=== PATIENT | female | born 1990 | race Caucasian/White ===

== ENCOUNTER 2016-09-09 11:53 | Emergency (ER) | payer OTHER ==
[~2016-09-09] VITALS: Wt 71.0 kg
[~2016-09-09 11:53] MED LIST: FAMO-18 PO; PREN1TAB49 PO
[2016-09-09] MEDS ORDERED: KETOROLAC 30 MG INJ IM STA (12:24)
--- NOTE | 2016-09-09 12:36 | ERD ---
ER Documentation Chief Complaint Date/Time DATE: 09/09/16 TIME: 12:27 Chief Complaint BACK PAIN X "A FEW WEEKS" HPI This is a 18-year-old female presenting to the emergency department for back pain 2-1/2 months. Patient states she is having aching type back pain for the past 2-1/2 months. Patient states she is also having pain that radiates down bilateral legs. No numbness or tingling. No loss of sensation. No midline tenderness. No abdominal pain. No dysuria or hematuria. No urinary or fecal incontinence. Has not tried any medications for this. ROS All systems reviewed and are negative except as per history of present illness. Medications Home Meds Active Scripts Cyclobenzaprine Hcl* (Cyclobenzaprine Hcl*) 10 Mg Tablet, 10 MG PO TID, #15 TAB Prov:JADE CHIN NP 09/09/16 Ibuprofen* (Motrin*) 600 Mg Tab, 600 MG PO Q6, #15 TAB Prov:JADE CHIN NP 09/09/16 Famotidine* (Pepcid*) 20 Mg Tablet, 20 MG PO BID for 4 Days, TAB Prov:REVA BLANCA MD 03/29/16 Reported Medications Vits W-Ca,Fe,Fa(<1MG) () 1 Tab Tablet, 1 TAB PO DAILY 07/31/12 Allergies Allergies: Coded Allergies: No Known Allergy (Unverified , 12/03/13) PMhx/Soc Medical and Surgical Hx: pt denies Medical Hx Hx Miscellaneous Medical Probl: Yes (POSSIBLY DIABETIC) Hx Alcohol Use: No Hx Substance Use: No Hx Tobacco Use: No Physical Exam Vitals Vital Signs Date Time Temp Pulse Resp B/P Pulse Ox O2 Delivery O2 Flow Rate FiO2 09/09/16 11:58 98.0 99 18 122/61 99 Physical Exam Const: No acute distress, alert, oriented to person place and time. Head: Atraumatic Eyes: Normal Conjunctiva ENT: Normal External Ears, Nose and Mouth. Neck: Full range of motion..~ No meningismus. Resp: Clear to auscultation bilaterally Cardio: Regular rate and rhythm, no murmurs Abd: Soft, non tender, non distended. Normal bowel sounds Skin: No petechiae or rashes Back: No midline or flank tenderness. Ext: No cyanosis, or edema Neur: Awake and alert Psych: Normal Mood and Affect Results 24 hrs Current Medications Medications (Trade) Dose Ordered Sig/Jaylyn Route PRN Reason Start Time Stop Time Status Last Admin Dose Admin Ketorolac Tromethamine (Toradol) 30 mg ONCE STAT IM 09/09/16 12:24 09/09/16 12:25 DC 09/09/16 12:48 Procedures/MDM ED COURSE: The patient was stable throughout ED course. I kept the patient and/or family informed of laboratory and diagnostic imaging results throughout the ED course. Toradol given MDM: 26-year-old female presents to the emergency department for intermittent back pain and bilateral leg pain 2-1/2 months. Remains neurovascularly intact. No neuro deficits. No urinary or fecal incontinence. No saddle anesthesia. No abdominal pain. No nausea, vomiting or diarrhea. Urine is negative for infection. Urine negative. No fevers. Patient given Toradol IM while in the ED. No indication for imaging at this time. Patient requesting to leave at this time and states pain is stable Low suspicion for cauda equina syndrome, epidural abscess, osteomyelitis, aortic aneurysm or paraspinous abscess. Differential diagnosis includes but not limited to spondylodesis, herniated disc, osteoarthritis, spinal stenosis, osteoporosis and rheumatoid arthritis. Patient is appropriate for outpatient management will be given prescription for ibuprofen. Instructed patient to follow-up with primary care provider in the next 24-48 hours for reassessment and additional management. Return to ED for any high fever, chest pain, difficulty breathing, shortness breath, wheezing, vomiting, diarrhea, abdominal pain or any new or worsening symptoms. Patient verbalizes understanding. All questions answered at discharge. Departure Diagnosis: Primary Impression: Back pain Back pain location: back pain in unspecified location Chronicity: chronic Back pain laterality: bilateral Qualified Code: M54.9 - Chronic bilateral back pain, unspecified back location Condition: Stable JADE CHIN NP Sep 09, 2016 12:36
[2016-09-09] MEDS ORDERED: IBUP-1542 PO (14:03)
[2016-09-09] MEDS ORDERED: CYCL-319 PO (14:03)
[2016-09-09 14:14] VITALS: RESP 18
== END 2016-09-09 14:14 | disposition home or self-care (01) ==
LOC: FTE 11:53
DX: M54.9 Dorsalgia, unspecified (principal)
CPT/HCPCS: 96372; J1885; Z7502

== ENCOUNTER 2016-11-06 11:15 | Emergency (ER) | payer OTHER ==
[~2016-11-06] VITALS: Ht 160 cm; Wt 74.5 kg
[~2016-11-06 11:15] MED LIST changes: +CYCL-319 PO; +IBUP-1542 PO
[2016-11-06 11:19] VITALS: Ht 160 cm; Wt 74.5 kg
--- NOTE | 2016-11-06 11:40 | ERD ---
ER Documentation Chief Complaint Date/Time DATE: 11/06/16 TIME: 11:37 Chief Complaint Complains of abdominal pain with cramping HPI 26-year-old female who presents to the emergency department for lower abdominal pain and cramping that radiates to her bilateral lower extremity. Stated that has been going on for a few months but got worse the past 2 days. Denies headache, loss of consciousness, dizziness, blurry vision, changes in vision, photophobia, facial pain, ear pain, throat pain, difficulty swallowing, neck pain, shoulder pain, chest pain, cough, hemoptysis, back pain, loss of appetite, nausea, vomiting, hematochezia, diarrhea, constipation, urinary symptoms, , the possibility of being , bladder and bowel incontinences, extremity weakness, extremity tenderness, numbness or tingling sensation, difficulty walking, recent travel, recent exposure to illness, recent antibiotic use in the last 3 months, fever, chills. Allergy: NKDA. PMH: Denies. Family medical history: Denies. AO LMP: October 14, 2016. Medications: Meloxicam 50 mg by mouth daily. Surgery: Denies. Primary Social History: Not working at this time. Denies smoking, use of alcohol, use of illegal drugs. ROS All systems reviewed and are negative except as per history of present illness. Medications Home Meds Active Scripts Cyclobenzaprine Hcl* (Cyclobenzaprine Hcl*) 10 Mg Tablet, 10 MG PO TID, #15 TAB Prov:JADE CHIN NP 09/09/16 Ibuprofen* (Motrin*) 600 Mg Tab, 600 MG PO Q6, #15 TAB Prov:JADE CHIN NP 09/09/16 Famotidine* (Pepcid*) 20 Mg Tablet, 20 MG PO BID for 4 Days, TAB Prov:REVA BLANCA MD 03/29/16 Reported Medications Vits W-Ca,Fe,Fa(<1MG) () 1 Tab Tablet, 1 TAB PO DAILY 07/31/12 Allergies Allergies: Coded Allergies: No Known Allergy (Unverified , 12/03/13) PMhx/Soc Hx Miscellaneous Medical Probl: Yes (POSSIBLY DIABETIC) Hx Alcohol Use: No Hx Substance Use: No Hx Tobacco Use: No Physical Exam Vitals Vital Signs Date Time Temp Pulse Resp B/P Pulse Ox O2 Delivery O2 Flow Rate FiO2 11/06/16 11:19 98.0 82 20 119/64 99 Physical Exam CONSTITUTIONAL: Well-appearing; well-nourished; in no apparent distress. HEAD: Normocephalic; atraumatic. EYES: Conjunctiva clear, sclera non-icteric, EOM intact. PERRL Ears: Hearing intact. EACs clear, TMs non-bulging, non-inflamed, translucent & mobile, ossicles normal appearance, No obstructions, no erythema, no discharges Nose: No obstructions. No polyps. No external lesions. Mucosa non-inflamed. No external lesions, septum and turbinates normal. No rhinorrhea. No discharges. Frontal sinus is non-tender to palpation. Maxillary sinus is non-tender to palpation. MOUTH: Moist mucous membranes, no lesion, no obstructions, no vesicles, no thrush, patent airway Throat: Uvula in midline. Right tonsil is +1 with no erythema, no exudate. Left tonsil is +1 with no erythema, no exudate. Tolerating secretions well. Good gag reflex. Patent airway. Neck: Supple, without lesions, bruits, or adenopathy. No mass. Thyroid non- enlarged and non-tender to palpation. CHEST: Symmetrical chest. Respirations even and not labored. No retractions noted. CARDIOVASCULAR: Normal S1, S2. RRR. No murmurs, gallops. RESPIRATORY: Normal chest excursion with respiration; breath sounds clear and equal bilaterally; no wheezes, rhonchi, or rales. Breathing even and unlabored. Speaking in clear, full, and complete sentences w/ ease. ABDOMEN: Normal bowel sounds normal. Soft, round, non-distended, non-guarding, no tenderness, no rebound, no organomegaly, no masses, no pulsating abdominal mass. No hernia. No peritoneal signs. : No CVA tenderness. BACK: Symmetrical shoulder. Spine is midline without deformity, tenderness. No evidence of trauma or deformity. PELVIS: Stable pelvis. No evidence of trauma or deformity. MUSCULOSKELETAL: Normal gait and station. No misalignment, asymmetry, crepitation, defects, tenderness, masses, effusions, decreased range of motion, instability, atrophy or abnormal strength or tone in the head, neck, spine, ribs , pelvis or extremities. No calf tenderness. NEUROVASCULAR: Distal pulses are present. Pedal pulse are present, equal, and normal. Capillary refills are < 2 seconds. NEUROLOGIC: Alert and oriented x4. Speaks full and clear sentences. Cranial Nerves II-XII normal. Sensation to pain, touch, and proprioception normal. Grossly unremarkable. No neurologic deficits. Romberg test is negative. PSYCHOLOGICAL: The patients mood and manner are appropriate. No hallucinations , delusions. Not SI. Not HI. Has the capacity to decide for self SKIN: Normal for age and ethnicity; warm; dry; good turgor; no apparent lesions or exudates. No rashes, hives, discoloration. Intact. Result Diagram: 11/06/16 1150 11/06/16 1150 Results 24 hrs Laboratory Tests Test 11/06/16 11:50 11/06/16 11:51 White Blood Count 6.710^3/ul Red Blood Count 4.5710^6/ul Hemoglobin 12.5g/dl Hematocrit 37.8% Mean Corpuscular Volume 82.7fl Mean Corpuscular Hemoglobin 27.4pg Mean Corpuscular Hemoglobin Concent 33.1g/dl Red Cell Distribution Width 14.6% Platelet Count 97408^3/UL Mean Platelet Volume 10.3fl Neutrophils % 51.2% Lymphocytes % 40.3% Monocytes % 7.0% Eosinophils % 1.3% Basophils % 0.1% Nucleated Red Blood Cells % 0.0/100WBC Neutrophils # 3.410^3/ul Lymphocytes # 2.710^3/ul Monocytes # 0.510^3/ul Eosinophils # 0.110^3/ul Basophils # 0.010^3/ul Nucleated Red Blood Cells # 0.010^3/ul Sodium Level 143mmol/L Potassium Level 3.8mmol/L Chloride Level 104mmol/L Carbon Dioxide Level 25mmol/L Anion Gap 18 Blood Urea Nitrogen 12mg/dl Creatinine 0.60mg/dl Glucose Level 88mg/dl Calcium Level 9.5mg/dl Total Bilirubin 0.1mg/dl Direct Bilirubin 0.00mg/dl Indirect Bilirubin 0.1mg/dl Aspartate Amino Transf (AST/SGOT) 16IU/L Alanine Aminotransferase (ALT/SGPT) 25IU/L Alkaline Phosphatase 62IU/L Total Protein 8.4g/dl Albumin 4.7g/dl Globulin 3.70g/dl Albumin/Globulin Ratio 1.27 Amylase Level 76U/L Lipase 84U/L Urine Color LT. YELLOW Urine Clarity CLEAR Urine pH 6.0 Urine Specific [place] 1.020 Urine Ketones NEGATIVE Urine Nitrite NEGATIVE Urine Bilirubin NEGATIVE Urine Urobilinogen 0.2 E.U./dL Urine Leukocyte Esterase TRACE Urine Microscopic RBC 2-5/HPF Urine Microscopic WBC 0-2/HPF Urine Squamous Epithelial Cells MODERATE Urine Bacteria FEW Urine Hemoglobin NEGATIVE Urine Glucose NEGATIVE% Urine Total Protein NEGATIVE Procedures/MDM Examination: Please see physical examination. Disease process, medical treatment was explained to the patient and family member. They verbalized understanding and agreed with the diagnostic tests, medical treatment, and follow-up care. Radiology: Pelvic ultrasound. Impression: Unremarkable ultrasound of the pelvis. Blood works: Reviewed. POC urine : Urinalysis: Reviewed. Treatment: Tylenol. Re-evaluation: Denies headache, dizziness, blurry vision, neck pain, shoulder pain, chest pain, abdominal pain, back pain, nausea, vomiting. No episode of emesis in the emergency department. There is no right upper/right lower/left upper/left lower/epigastric tenderness on light and deep palpation. Negative on Rovsing sign's. Negative Mak sign. No CVA tenderness. No neurological deficits. No neurovascular deficits. Consultation: None. Differential diagnosis: Ovarian torsion versus ovarian cyst rupture versus pelvic pain Medical decision makin-year-old female who presents to the emergency department for lower abdominal pain and cramping that radiates to her bilateral lower extremity. Stated that has been going on for a few months but got worse the past 2 days. Patient's complaint, patient's history about her complaint, my physical findings, diagnostic test results, my reevaluation are consistent my final diagnosis of pelvic pain, UTI. Medications prescribed are the following: Motrin. Zofran. Tylenol, Keflex. Patient and family member are made aware of the side effects and adverse reactions of the medications prescribed. Instructed on when to seek emergent and medical attention in case allergic/anaphylactic reactions or severe side effects and or adverse reactions to medications. Patient and family member verbalized understanding. Patient instructed Instructed to follow-up with his PCP in 24-48 hours. Instructed to Call 911 for chest pain, shortness of breath. Advised to come back here in ED as soon as possible for severity of symptoms which includes but not limited to: any new symptoms; shortness of breath/difficulty of breathing; cardiovascular changes; severe gastrointestinal symptoms; signs and symptoms of bleeding and or infection; signs of compartment syndrome/neurovascular changes; neurological changes/deficits. Patient and family member verbalized understanding. Upon discharge, patient is alert and oriented x 4, speaks full and clear sentences, denies pain, has no neurological deficits, has no neurovascular deficits, difficulty of breathing. Breathing even and unlabored. Lung sounds are clear to auscultation. Not in distress. Appears comfortable. Ambulatory with steady gait. Appears satisfied with care provided here in ED. Departure Diagnosis: Primary Impression: Pelvic pain Additional Impression: UTI (urinary tract infection) Condition: Good Additional Instructions: Patient instructed Instructed to follow-up with his PCP in 24-48 hours. Instructed to Call 911 for chest pain, shortness of breath. Advised to come back here in ED as soon as possible for severity of symptoms which includes but not limited to: any new symptoms; shortness of breath/difficulty of breathing; cardiovascular changes; severe gastrointestinal symptoms; signs and symptoms of bleeding and or infection; signs of compartment syndrome/neurovascular changes; neurological changes/deficits. Patient and family member verbalized understanding. PRINCESS MERLOS November 06, 2016 11:40
[2016-11-06 12:15] LABS: ADD SCAN DIFF NO
[2016-11-06 12:17] LABS: BASOPHILS % 0.1 % (0.0-2.0); EOSINOPHILS # 0.1 10^3/ul (0.0-0.5); EOSINOPHILS % 1.3 % (0.0-7.0); HEMATOCRIT 37.8 % (37.0-47.0); HEMOGLOBIN 12.5 g/dl (12.0-16.0); LYMPHOCYTES # 2.7 10^3/ul (0.8-2.9); LYMPHOCYTES % 40.3 % (15.0-51.0); MEAN CORPUSCULAR HEMOGLOBIN 27.4 pg (29.0-33.0); MEAN CORPUSCULAR HGB CONC 33.1 g/dl (32.0-37.0); MEAN CORPUSCULAR VOLUME 82.7 fl (82.0-101.0); MEAN PLATELET VOLUME 10.3 fl (7.4-10.4); MONOCYTE # 0.5 10^3/ul (0.3-0.9); NEUTROPHIL # 3.4 10^3/ul (1.6-7.5); NEUTROPHILS % 51.2 % (39.0-77.0); PLATELET COUNT 314 10^3/UL (140-415); RED BLOOD COUNT 4.57 10^6/ul (4.20-5.40); RED CELL DISTRIBUTION WIDTH 14.6 % (11.5-14.5); WHITE BLOOD COUNT 6.7 10^3/ul (4.8-10.8)
[2016-11-06 12:23] LABS: ADD UMIC YES; URINE BILIRUBIN (Dip) NEGATIVE (NEGATIVE); URINE BLOOD (Dip) NEGATIVE (NEGATIVE); URINE COLOR LT. YELLOW (YELLOW); URINE GLUCOSE (Dip) NEGATIVE (NEGATIVE); URINE KETONES (Dip) NEGATIVE (NEGATIVE); URINE LEUKOCYTE ESTERASE (Dip) TRACE (NEGATIVE); URINE NITRITE (Dip) NEGATIVE (NEGATIVE); URINE TOTAL PROTEIN (Dip) NEGATIVE (NEGATIVE); URINE UROBILINOGEN (Dip) 0.2 E.U./dL (0.1-1.0)
[2016-11-06 12:42] LABS: SQUAMOUS EPITHELIAL CELL,UR MODERATE
[2016-11-06 12:43] LABS: BACTERIA,URINE FEW
[2016-11-06 12:48] LABS: ALBUMIN 4.7 g/dl (3.3-4.9); ALBUMIN/GLOBULIN RATIO 1.27; BILIRUBIN,INDIRECT 0.1 mg/dl (0-1.1); BILIRUBIN,TOTAL 0.1 mg/dl (0.2-1.3); CALCIUM 9.5 mg/dl (8.4-10.2); CREATININE 0.6 mg/dl (0.44-1.00); POTASSIUM 3.8 mmol/L (3.5-5.1); TOTAL PROTEIN 8.4 g/dl (6.1-8.1)
--- NOTE | 2016-11-06 13:34 | RADRPT ---
PROCEDURE: US Pelvis. CLINICAL INDICATION: Pelvic pain. Cramping TECHNIQUE: Sonographic evaluation of the pelvis was performed utilizing both transabdominal and tr ansvaginal technique.Curved array transabdominal transducer technique as well as a high frequency en dovaginal probe was utilized. Images were reviewed on the high-resolution PACS workstation. COMPARISON: No prior studies are available for comparison. FINDINGS: The uterus is normal in size, echogenicity, and morphology and measures 9.2 x 4.2 x 5.8 cm. The en dometrium is normal measuring 13.6 mm. The right ovary measures 3.5 cm in dimension. The left ovar y measures 2.5 cm in dimension. The ovaries are symmetric in size, echogenicity, flow, and morpholo gy. . There are no adnexal masses. There is trace free fluid in the pelvis.. IMPRESSION: 1. Unremarkable ultrasound of the pelvis. RPTAT: [facility] .Bharath Spann MD, Date Time Electronically viewed and signed by .Bharath Spann MD, on 11/06/2016 13:33 .L/
[2016-11-06] MEDS ORDERED: CEPH-443 PO (13:50)
[2016-11-06] MEDS ORDERED: ONDA4TAB14 PO (13:50)
[2016-11-06] MEDS ORDERED: IBUP-1542 PO (13:50)
[2016-11-06] MEDS ORDERED: ACET500C5 PO (13:50)
== END 2016-11-06 14:22 | disposition home or self-care (01) ==
LOC: FTE 11:15
DX: R10.2 Pelvic and perineal pain (principal); N39.0 Urinary tract infection, site not specified
CPT/HCPCS: 76830; 76856; 80053; 81001; 82150; 83690; 84703; 85025; 87086; Z7502

== ENCOUNTER 2017-04-12 09:37 | Emergency (ER) | payer OTHER ==
[~2017-04-12] VITALS: Ht 160 cm; Wt 78.2 kg
[~2017-04-12 09:37] MED LIST changes: +ACET500C5 PO; +CEPH-443 PO; -FAMO-18 PO; +FAMO-96 PO; +ONDA4TAB14 PO
[2017-04-12 09:40] VITALS: Ht 160 cm; Wt 78.2 kg
[2017-04-12] MEDS ORDERED: KETOROLAC 30 MG INJ IM STA (10:56)
[2017-04-12] MEDS ORDERED: ONDANSETRON (ODT) 4 MG TAB ODT STA (10:56)
[2017-04-12] MEDS ORDERED: KETOROLAC 30 MG INJ IV STA (11:19)
--- NOTE | 2017-04-12 11:19 | ERD ---
ER Documentation Chief Complaint Chief Complaint ABD PAIN WITH VOMITING/DIARRHEA X 2 DAYS HPI This is a 26-year-old female presenting to the emergency department with generalized abdominal pain, vomiting and diarrhea 3 days. Patient states symptoms started 3 days ago after eating shrimp. Patient states she has had multiple episodes of nonbloody nonbilious emesis and nonbloody loose stool. Patient denies any black or tarry stools. Denies melena. Denies fevers or chills. No dysuria, hematuria, urinary frequency or urgency. No flank pain or difficulty urinating. Patient has been taking ibuprofen with last dose yesterday. Patient also states she recently received a Depo shot by her primary care provider who stated that her menstrual period should cease after 5 days. Patient states she continues to have vaginal bleeding that started on ROS All systems reviewed and are negative except as per history of present illness. Medications Home Meds Active Scripts Ibuprofen* (Motrin*) 400 Mg Tab, 400 MG PO Q6, #30 TAB Prov:JADE CHIN NP 04/12/17 Ondansetron (Ondansetron Odt) 4 Mg Tab.rapdis, 4 MG PO Q6H Y for NAUSEA AND/OR VOMITING, #10 TAB Prov:PASILAALMAANIBRAYDEN F 11/06/16 Ibuprofen* (Motrin*) 600 Mg Tab, 600 MG PO Q8, #30 TAB Prov:PASILABANANIAR F 11/06/16 Acetaminophen* (Tylophen*) 500 Mg Capsule, 1 CAP PO Q6H Y for PAIN AND OR ELEVATED TEMP, #20 CAP Prov:PASILABANANIBRAYDEN F 11/06/16 Cephalexin* (Keflex*) 500 Mg Capsule, 500 MG PO QID for 5 Days, CAP Prov:PASILABANANIAR F 11/06/16 Cyclobenzaprine Hcl* (Cyclobenzaprine Hcl*) 10 Mg Tablet, 10 MG PO TID, #15 TAB Prov:JADE CHIN NP 09/09/16 Ibuprofen* (Motrin*) 600 Mg Tab, 600 MG PO Q6, #15 TAB Prov:JADE CHIN NP 09/09/16 Famotidine* (Pepcid*) 20 Mg Tablet, 20 MG PO BID for 4 Days, TAB Prov:REVA BLANCA MD 03/29/16 Reported Medications Vits W-Ca,Fe,Fa(<1MG) () 1 Tab Tablet, 1 TAB PO DAILY 07/31/12 Allergies Allergies: Coded Allergies: No Known Allergy (Unverified , 12/03/13) PMhx/Soc Hx Miscellaneous Medical Probl: Yes (POSSIBLY DIABETIC) Hx Alcohol Use: No Hx Substance Use: No Hx Tobacco Use: No Physical Exam Vitals Vital Signs Date Time Temp Pulse Resp B/P Pulse Ox O2 Delivery O2 Flow Rate FiO2 04/12/17 13:48 98.5 77 19 122/65 100 04/12/17 09:40 98.6 114 18 128/76 98 Physical Exam Const: Alert, no acute distress Head: Atraumatic Eyes: Normal Conjunctiva ENT: Normal External Ears, Nose and Mouth. Neck: Full range of motion..~ No meningismus. Resp: Clear to auscultation bilaterally Cardio: Regular rate and rhythm, no murmurs Abd: Soft, non tender, non distended. Normal bowel sounds. Negative Sesay sign. No McBurney's point tenderness. Negative rebound tenderness. Skin: No petechiae or rashes Back: No midline or flank tenderness Ext: No cyanosis, or edema Neur: Awake and alert Psych: Normal Mood and Affect Result Diagram: 04/12/17 1115 04/12/17 1115 Results 24 hrs Laboratory Tests Test 04/12/17 11:15 04/12/17 12:28 White Blood Count 9.010^3/ul Red Blood Count 5.3210^6/ul Hemoglobin 14.5g/dl Hematocrit 44.0% Mean Corpuscular Volume 82.7fl Mean Corpuscular Hemoglobin 27.3pg Mean Corpuscular Hemoglobin Concent 33.0g/dl Red Cell Distribution Width 14.8% Platelet Count 50397^3/UL Mean Platelet Volume 9.7fl Neutrophils % 67.6% Lymphocytes % 25.7% Monocytes % 5.8% Eosinophils % 0.6% Basophils % 0.1% Nucleated Red Blood Cells % 0.0/100WBC Neutrophils # 6.110^3/ul Lymphocytes # 2.310^3/ul Monocytes # 0.510^3/ul Eosinophils # 0.110^3/ul Basophils # 0.010^3/ul Nucleated Red Blood Cells # 0.010^3/ul Sodium Level 144mmol/L Potassium Level 4.5mmol/L Chloride Level 104mmol/L Carbon Dioxide Level 22mmol/L Anion Gap 23 Blood Urea Nitrogen 16mg/dl Creatinine 0.78mg/dl Glucose Level 109mg/dl Calcium Level 10.0mg/dl Total Bilirubin 0.3mg/dl Direct Bilirubin 0.00mg/dl Indirect Bilirubin 0.3mg/dl Aspartate Amino Transf (AST/SGOT) 21IU/L Alanine Aminotransferase (ALT/SGPT) 19IU/L Alkaline Phosphatase 67IU/L Total Protein 10.1g/dl Albumin 5.6g/dl Globulin 4.50g/dl Albumin/Globulin Ratio 1.24 Lipase 66U/L Bedside Urine pH (LAB) 6.0 Bedside Urine Protein (LAB) 2+ Bedside Urine Glucose (UA) Negative Bedside Urine Ketones (LAB) Negative Bedside Urine Blood 3+ Bedside Urine Nitrite (LAB) Negative Bedside Urine Leukocyte Esterase (L Negative Current Medications Medications (Trade) Dose Ordered Sig/Jaylyn Route PRN Reason Start Time Stop Time Status Last Admin Dose Admin Ondansetron HCl (Zofran Odt) 4 mg ONCE STAT ODT 04/12/17 10:56 04/12/17 10:59 DC 04/12/17 11:50 Ketorolac Tromethamine (Toradol) 30 mg ONCE STAT IM 04/12/17 10:56 04/12/17 11:20 DC Ketorolac Tromethamine (Toradol) 30 mg ONCE STAT IV 04/12/17 11:19 04/12/17 11:20 DC 04/12/17 11:50 Acetaminophen/ Hydrocodone Bitart ([place] (5/325)) 1 tab ONCE ONCE PO 04/12/17 12:30 04/12/17 12:31 DC 04/12/17 13:02 Procedures/MDM MDM: This is a 26-year-old female presenting to emergency department for generalized, nonspecific abdominal pain, vomiting and diarrhea 3 days. Patient 's physical exam is unremarkable. There is no McBurney's point tenderness, negative Sesay sign and negative rebound tenderness. Patient is afebrile vital signs are stable. IV access obtained and patient given Toradol 30 mg IV and Zofran 4 mg p.o. No active vomiting while in the ED. CBC shows no significant anemia or infection. CMP shows no significant electrolyte imbalance. No elevated liver enzymes. Normal creatinine BUN. Normal glucose and lipase. Urine dip shows 3+ blood and 2+ protein. Urine is negative. Patient remains alert and stable throughout ED visit. Vital signs remained stable. Differential diagnosis includes but not limited to acute appendicitis, diverticulitis, diverticulosis, bowel obstruction, constipation, infectious colitis, irritable bowel syndrome, inflammatory bowel disease, viral gastroenteritis, abdominal aortic aneurysm, food intolerance, celiac disease, UTI, pyelonephritis, nephrolithiasis, acute urinary retention or colorectal cancer. I doubt any emergent conditions such as appendicitis, diverticulitis, bowel obstruction, abdominal aortic aneurysm at this time due to normal vital signs and normal lab results. Patient is appropriate for outpatient management. Patient will be given prescription for Ibuprofen. Instructed patient to follow-up with primary care provider in the next 2-3 days for reassessment and additional management. Return to ED for any high fever, chest pain, difficulty breathing, shortness breath, wheezing, vomiting, diarrhea, abdominal pain or any new or worsening symptoms. Patient verbalizes understanding. All questions answered at discharge. Disclaimer: Inadvertent spelling and grammatical errors are likely due to EHR/ dictation software use and do not reflect on the overall quality of patient care. Also, please note that the electronic time recorded on this note does not necessarily reflect the actual time of the patient encounter. Departure Diagnosis: Primary Impression: Abdominal pain Abdominal location: generalized Qualified Code: R10.84 - Generalized abdominal pain Condition: Stable JADE CHIN NP Apr 12, 2017 11:19
[2017-04-12] MEDS ORDERED: HYDROCODONE/APAP (5/325) TAB PO ONE (12:30)
--- NOTE | 2017-04-12 13:16 | RADRPT ---
PROCEDURE: US Pelvis CLINICAL INDICATION: Pelvic pain. TECHNIQUE: Sonographic evaluation of the pelvis was performed utilizing both transabdominal and tr ansvaginal technique. Curved array transabdominal transducer technique as well as a high frequency endovaginal probe was utilized. Images were reviewed on the high-resolution PACS workstation. COMPARISON: Pelvic ultrasound dated 11/06/2016 FINDINGS: The uterus is normal in size, echogenicity, and morphology measuring 7.9 x 3.7 x 5.3 cm in dimension . The uterus is anteverted in normal position. The endometrium is thin and homogeneous measuring 3.5 mm in diameter. The normal trilaminar stripe of the endometrium is preserved. The right ovary measures 2.5 x 1.4 x 1.5 cm in dimension. The left ovary measures 2.5 x 1.4 x 1.5 c m in dimension. The ovaries are symmetric in size, echogenicity, and morphology. Normal Doppler fl ow is demonstrated to both ovaries. There are no adnexal masses. There is no significant free flui d in the pelvis. IMPRESSION: Unremarkable ultrasound of the pelvis. No significant interval change. RPTAT: HH .Estela Watkins MD, Date Time Electronically viewed and signed by .Estela Watkins MD, on 04/12/2017 13:16 .G/
[2017-04-12] MEDS ORDERED: IBUP400T22 PO (13:25)
[2017-04-12 13:48] VITALS: BP 122/65; PULSE 77; RESP 19; TEMP 98.5
== END 2017-04-12 13:51 | disposition home or self-care (01) ==
LOC: FTE 09:37
DX: R10.84 Generalized abdominal pain (principal); R10.2 Pelvic and perineal pain
CPT/HCPCS: 36415; 76830; 76856; 80053; 81003; 83690; 85025; 96374; J1885; Z7502; Z7610

== ENCOUNTER 2017-06-08 10:55 | Emergency (ER) | END 2017-06-08 14:20 | disposition home or self-care (01) ==

== ENCOUNTER 2017-07-08 07:59 | Emergency (ER) | END 2017-07-08 12:25 | disposition home or self-care (01) ==

== ENCOUNTER 2017-10-01 18:24 | Emergency (ER) | END 2017-10-01 22:50 | disposition left against medical advice (07) ==

== ENCOUNTER 2017-12-21 12:13 | Emergency (ER) | END 2017-12-21 13:05 | disposition home or self-care (01) ==

== ENCOUNTER 2018-01-08 09:37 | Emergency (ER) | END 2018-01-08 11:11 | disposition home or self-care (01) ==

== ENCOUNTER 2018-03-08 18:06 | Emergency (ER) | END 2018-03-08 19:39 | disposition home or self-care (01) ==

== ENCOUNTER 2018-03-10 07:56 | Emergency (ER) | END 2018-03-10 08:59 | disposition home or self-care (01) ==

== ENCOUNTER 2018-04-16 08:01 | Emergency (ER) | END 2018-04-16 11:51 | disposition home or self-care (01) ==